=== PATIENT | male | born 1960 | race Caucasian/White ===

== ENCOUNTER 2021-09-18 06:04 | Day surgery (SDC) | payer OTHER ==
[2021-09-18] MEDS ORDERED: Dextrose 5%-Lactated Ringers 1,000 ML IV SCH (06:45)
[2021-09-18] MEDS ORDERED: methylPREDNISolone Sodium Succinate 40 MG/1 ML SDV IVPUSH ONE (07:02)
[2021-09-18] MEDS ORDERED: fentaNYL 100 MCG/2 ML SDV ONE (07:04)
[2021-09-18] MEDS ORDERED: Midazolam 1 MG/ML 2 ML SDV ONE (07:04)
[2021-09-18] MEDS ORDERED: Propofol 200 MG/20 ML SDV ONE (07:04)
[2021-09-18] MEDS ORDERED: methylPREDNISolone Sodium Succinate 125 MG/2 ML SDV IVPUSH ONE (07:30)
== END 2021-09-18 09:46 | disposition home or self-care (01) ==
LOC: JP.SDS 06:04
PROVIDERS: ATTEND Surgery
DX: Z12.11 Encounter for screening for malignant neoplasm of colon (principal); D12.8 Benign neoplasm of rectum; K64.9 Unspecified hemorrhoids; E66.9 Obesity, unspecified; Z68.29 Body mass index [BMI] 29.0-29.9, adult
CPT/HCPCS: 88305; J2250; J2704; J2930; J3010; J7121

== ENCOUNTER 2024-06-18 06:31 | Day surgery (SDC) | payer MEDICARE, OTHER ==
[2024-06-18] MEDS ORDERED: Propofol 200 MG/20 ML SDV ONE (07:04)
[2024-06-18] MEDS ORDERED: fentaNYL 50 MCG/ML SDV ONE (07:04)
[2024-06-18] MEDS ORDERED: Midazolam 1 MG/ML 2 ML SDV ONE (07:04)
[2024-06-18] MEDS: Lactated Ringers 1,000 ML IV SCH (07:33)
== END 2024-06-18 10:00 | disposition home or self-care (01) ==
LOC: JP.SDS 06:31
PROVIDERS: ATTEND Surgery
DX: Z12.11 Encounter for screening for malignant neoplasm of colon (principal); D12.5 Benign neoplasm of sigmoid colon; K57.30 Diverticulosis of large intestine without perforation or abscess without bleeding
CPT/HCPCS: 00811-QZ; 88305; J2250; J2704; J3010; J7120